=== PATIENT | male | born 1960 | race Caucasian/White ===

== ENCOUNTER 2017-05-05 07:21 | Inpatient (IN) | payer BC ==
[~2017-05-05] VITALS: Ht 175.3 cm; Wt 127.9 kg
[2017-05-05 08:09] LABS: RED BLOOD COUNT 5.57 M/UL (4.20-5.50); WHITE BLOOD COUNT 7.4 K/UL (4.5-11.0)
[2017-05-05 08:27] LABS: BUN/CREATININE RATIO 14 (0-10)
[2017-05-05] MEDS ORDERED: NORVASC 5 MG TAB5 MG PO (12:37)
[2017-05-05] MEDS ORDERED: LISINOPRIL-HCT1 EAC1 PO (12:37)
[2017-05-05] MEDS ORDERED: OMEPRAZOLE40 MG PO (12:37)
[2017-05-05] MEDS ORDERED: TESTOSTERON100 MG/ML IM (12:39)
[2017-05-05] MEDS ORDERED: CIALIS5 MG PO (12:41)
[2017-05-06 03:14] LABS: HEMOGLOBIN 16.6 gm/dl (14.0-17.5); RED BLOOD COUNT 5.16 M/UL (4.20-5.50)
[2017-05-06 03:22] LABS: WHITE BLOOD COUNT 10.5 K/UL (4.5-11.0)
[2017-05-06 03:32] LABS: BUN/CREATININE RATIO 19 (0-10)
[2017-05-07 04:25] LABS: HEMOGLOBIN 15.6 gm/dl (14.0-17.5); RED BLOOD COUNT 4.86 M/UL (4.20-5.50)
[2017-05-07 04:51] LABS: BUN/CREATININE RATIO 20 (0-10)
[2017-05-07] MEDS ORDERED: ADULT LOW DOSE81 MG PO (10:06)
[2017-05-07] MEDS ORDERED: TENORMIN 50 MG50 MG PO (10:07)
--- NOTE | 2017-05-07 10:26 | NUR ---
HOLTER MONITOR PUT ON BY CORAL FROM RESPIRATORY PT VERBALIZED UNDERSTANDING OF INSTRUCTIONS
== END 2017-05-07 09:00 | disposition home or self-care (01) | DRG 309 ==
LOC: ER1 07:21 → ZEROF 09:40 → PROG CARE 09:40
PROVIDERS: Specialist/Technologist Athletic Trainer; ADMIT Family Medicine
DX: I48.91 Unspecified atrial fibrillation (principal); Z68.41 Body mass index [BMI] 40.0-44.9, adult; E87.6 Hypokalemia; E83.39 Other disorders of phosphorus metabolism; I10 Essential (primary) hypertension; E78.5 Hyperlipidemia, unspecified; F17.290 Nicotine dependence, other tobacco product, uncomplicated; F10.20 Alcohol dependence, uncomplicated; Z82.49 Family history of ischemic heart disease and other diseases of the circulatory system; Z82.3 Family history of stroke; Z84.89 Family history of other specified conditions; Z98.890 Other specified postprocedural states; E66.9 Obesity, unspecified
CPT/HCPCS: ECHO; 36415; 71010; 80048; 80053; 80061; 82550; 82553; 83036; 83735; 83874; 84100; 84439; 84443; 84484; 85025; 85027; 85610; 85730; 93005; 93270; 93306; 96361; 96374; 99285; J1650; J7030

== ENCOUNTER → 2020-12-19 | Outpatient (CLI) | payer BC ==
[~2020-12-19] MED LIST: ADULT LOW DOSE81 MG PO; CIALIS5 MG PO; LISINOPRIL-HCT1 EAC1 PO; NORVASC 5 MG TAB5 MG PO; OMEPRAZOLE40 MG PO; TENORMIN 50 MG50 MG PO; TESTOSTERON100 MG/ML IM
== END ==
LOC: KOH-I 08:32
DX: R10.84 Generalized abdominal pain (principal); K76.89 Other specified diseases of liver
CPT/HCPCS: 76700